=== PATIENT | female | born 1990 | race Two or more races ===

== ENCOUNTER 2017-05-17 08:33 | Emergency (ER) | payer OTHER ==
[~2017-05-17] VITALS: Ht 144.8 cm; Wt 45.4 kg
--- NOTE | 2017-05-17 09:05 | PHYS DOC ---
General Chief Complaint: VAGINAL BLEEDING Stated Complaint: VAGINAL BLEEDING Time Seen by MD: 08:50 Source: patient Exam Limitations: no limitations Problems: History of Present Illness Initial Comments Patient is a 27-year-old 9 wks gestation female c/o 3 days vaginal bleeding and lower abdominal pain. 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 She says she started bleeding on Tuesday but was having no discomfort. Yesterday she developed some lower abdominal discomfort described as cramping which has persisted until this morning. Additionally today she is having low back discomfort and spasms which, and go. She says the bleeding was mild initially but has progressively worsened. Initially she had dark brown discharge however today she is having bright red blood with some clots. She tried to contact her booth manager but was unable to get a hold of them so she came for evaluation. ED vitals: 98.6, 75, 16, 119/68, 98% room air Patient is 1 para 0 she is taking vitamins she is a nonsmoker. Timing/Duration: getting worse (3 days ago) Severity: moderate Modifying Factors: improves with other Associated Symptoms: other Allergies: Coded Allergies: No Known Drug Allergies (Unverified , 05/17/17) Past Medical History Medical History: no pertinent history Surgical History: no surgical history Social History Smoker: non-smoker Alcohol: none Drugs: none Review of Systems Constitutional: denies chills, denies fever Respiratory: denies cough, denies shortness of breath Cardiovascular: denies chest pain, denies palpitations Gastrointestinal: see HPI, denies diarrhea, denies nausea, denies vomiting Genitourinary: see HPI Musculoskeletal: see HPI, denies joint swelling, denies neck pain Psychiatric/Neurological: denies headache, denies numbness, denies paresthesia Physical Exam General Appearance: WD/WN, no apparent distress Eyes: bilateral eye normal inspection, bilateral eye PERRL, bilateral eye EOMI Ear, Nose, Throat: hearing grossly normal, normal ENT inspection Neck: full range of motion Respiratory: normal breath sounds, no respiratory distress Cardiovascular: regular rate, rhythm, no edema Gastrointestinal: soft (suprapubic tenderness, no rebound or guarding. 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 PHYSICIAN: PEDRO BAIRD DO REASON: 9 wks gest bleed x 3 days r/o ectopic vs PROCEDURE: OB <14 WKS W/TV Obstetrical pelvic ultrasound 05/17/2017 at 1025 hours Indication: Bleeding and cramping with passage of large clots. Beta hCG 7970. Comparison: None available Technique: Sonographic evaluation of the pelvic structures was performed utilizing transabdominal imaging. Grayscale and color Doppler was utilized. Findings: The uterus measures 9.8 x 5.1 x 4.4 cm. Endometrium measures 13 mm in maximal dimension. No gestational sac is identified. Right ovary measures 2.8 x 2.5 x 1.6 cm and appears normal. Left ovary measures 3.2 x 3.1 x 1.7 cm and contains a cyst measuring 1.6 x 1.4 x 0.8 cm. Spectral waveform analysis was performed demonstrating perfusion to the ovaries bilaterally the time of imaging. Small amount of free fluid is noted within the cul-de-sac. Impression: 1. An intrauterine gestational sac is not identified. Given the beta hCG values, findings may represent early versus ectopic versus aborted . Recommend serial beta-hCG and follow-up ultrasound. 2. There is a 1.6 x 1.4 x 0.8 cm cystic lesion in the left ovary which is felt to represent either a follicle or corpus luteal cyst. Attention on follow-up exams is recommended. DICTATED AND SIGNED BY: ASTRID GARDINER MD DATE: 05/17/17 1112 CC: HOWIE MCKEON DO; PEDRO BAIRD DO ~ 1143: CBC, CMP unremarkable. HCG 7970. Patient is in more discomfort at this point upon recheck I find her standing and bending forward with her hands on the exam table. She reports that the low back and lower abdomen discomfort is more severe but no other new symptoms. I called Dr. Simons office to discuss the findings and specifically possibility of ectopic . He isn't a delivery and staff reports he will call back momentarily. 1230: I discussed the patient with Dr. Simons. Patient is likely miscarrying however due to abnormal ultrasound and her evolving discomfort he recommends observation admission. Our facility has no obstetrics so he recommends EMS transfer to the emergency department at [facility] further evaluation and observation admission. I discussed the patient with Dr. Cruz, emergency department physician at who accepts the patient for EMS transfer to his facility. ED course: 27-year-old female 9 months gestation 1 presents with stable vital signs and 3 days vaginal bleeding and worsening abdominal and low back discomfort. ECT and CMP are unremarkable, hCG is 7970. Ultrasound reveals possible ectopic . Patient received fentanyl and Zofran as well as 1 L normal saline IV bolus in the emergency department and was transferred to [facility] ED for further evaluation. Departure Time of Disposition: 12:51 Disposition: 02 XFER SHT-TRM HOSP Diagnosis: First trimester bleeding r/o ectopic Condition: STABLE Additional Instructions: EMS transfer to [facility] ED Dr Cruz is accepting. PEDRO BAIRD DO May 17, 2017 09:05
[2017-05-17 09:29] LABS: BASO # 0.1 x10^3/uL (0.0-0.2); BASO % 1 % (0-3); EOS # 0.1 x10^3/uL (0.0-0.7); EOS % 1 % (0-3); HEMATOCRIT 38.2 % (36.0-47.0); HEMOGLOBIN 12.9 g/dL (12.0-15.5); LYMPH # 1.6 x10^3/uL (1.0-4.8); LYMPH % 15 % (24-48); MEAN CORPUSCULAR HEMOGLOBIN 30 pg (25-35); MEAN CORPUSCULAR HGB CONC 34 g/dL (31-37); MEAN CORPUSCULAR VOLUME 89 fL (79-100); MONO # 0.7 x10^3/uL (0.0-1.1); MONO % 7 % (0-9); NEUT # 7.8 x10^3uL (1.8-7.7); NEUT % 77 % (31-73); PLATELET COUNT 223 x10^3/uL (140-400); RED BLOOD COUNT 4.29 x10^6/uL (3.50-5.40); RED CELL DISTRIBUTION WIDTH 12.5 % (11.5-14.5); WHITE BLOOD COUNT 10.2 x10^3/uL (4.0-11.0)
[2017-05-17 09:39] LABS: ALBUMIN 4.2 g/dL (3.4-5.0); CALCIUM 8.8 mg/dL (8.5-10.1); CREATININE 0.7 mg/dL (0.6-1.0); DIRECT BILIRUBIN 0.1 mg/dL (0.0-0.2); TOTAL BILIRUBIN 0.4 mg/dL (0.2-1.0); TOTAL PROTEIN 7.2 g/dL (6.4-8.2)
--- NOTE | 2017-05-17 11:23 | RAD ---
Obstetrical pelvic ultrasound 05/17/2017 at 1025 hours Indication: Bleeding and cramping with passage of large clots. Beta hCG 7970. Comparison: None available Technique: Sonographic evaluation of the pelvic structures was performed utilizing transabdominal imaging. Grayscale and color Doppler was utilized. Findings: The uterus measures 9.8 x 5.1 x 4.4 cm. Endometrium measures 13 mm in maximal dimension. No gestational sac is identified. Right ovary measures 2.8 x 2.5 x 1.6 cm and appears normal. Left ovary measures 3.2 x 3.1 x 1.7 cm and contains a cyst measuring 1.6 x 1.4 x 0.8 cm. Spectral waveform analysis was performed demonstrating perfusion to the ovaries bilaterally the time of imaging. Small amount of free fluid is noted within the cul-de-sac. Impression: 1. An intrauterine gestational sac is not identified. Given the beta hCG values, findings may represent early versus ectopic versus aborted . Recommend serial beta-hCG and follow-up ultrasound. 2. There is a 1.6 x 1.4 x 0.8 cm cystic lesion in the left ovary which is felt to represent either a follicle or corpus luteal cyst. Attention on follow-up exams is recommended.
[2017-05-17] MEDS ORDERED: IV NORMAL SALINE 1,000ML 1,000 ML IV SCH (12:46)
[2017-05-17] MEDS ORDERED: fentaNYL PF 100 MCG/2 ML VIAL IV PRN (13:00)
[2017-05-17] MEDS ORDERED: ONDANSETRON PF 4 MG/2 ML VIAL. IV ONE (13:00)
[2017-05-17 13:15] VITALS: BP 115/72
[2017-05-17] MEDS ORDERED: fentaNYL PF 100 MCG/2 ML VIAL IM ONE (13:15)
== END 2017-05-17 13:42 | disposition short-term general hospital (02) ==
LOC: ER 08:33
DX: O20.9 Hemorrhage in early pregnancy, unspecified (principal); O00.90 Unspecified ectopic pregnancy without intrauterine pregnancy; R10.30 Lower abdominal pain, unspecified; M54.5 Low back pain; Z3A.09 9 weeks gestation of pregnancy
CPT/HCPCS: 36415; 76801; 76817; 80048; 80076; 84702; 85025; 96374; 96375; 99285; J2405; J3010; J7030

== ENCOUNTER 2017-10-22 08:56 | Emergency (ER) | payer OTHER ==
[2017-10-22 09:20] VITALS: BP 140/56
[2017-10-22] MEDS ORDERED: AZIT250T PO (10:44)
[2017-10-22] MEDS ORDERED: ALBU8.5H8 INH (10:44)
--- NOTE | 2017-10-22 10:51 | PHYS DOC ---
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 Patient states that she's having some wheezing and become short of breath more easily than normal. She denies fever chills sweats or body aches no headache or other symptoms consistent with influenza. No nausea vomiting or diarrhea no immunocompromise status and ED vital signs are stable. Timing/Duration: other Severity: moderate Modifying Factors: worse with movement, improves with rest Associated Symptoms: cough, shortness of breath Allergies: Coded Allergies: No Known Drug Allergies (Unverified , 05/17/17) Past Medical History Medical History: no pertinent history Surgical History: no surgical history Social History Smoker: non-smoker Alcohol: none Drugs: none Review of Systems Constitutional: denies chills, denies diaphoresis, denies fever, denies malaise Respiratory: see HPI Cardiovascular: denies chest pain, denies palpitations, denies syncope Gastrointestinal: denies diarrhea, denies nausea, denies vomiting Musculoskeletal: denies back pain, denies joint swelling, denies neck pain Psychiatric/Neurological: denies headache, denies numbness, denies paresthesia Hematologic/Lymphatic: denies blood clots, denies easy bleeding, denies easy bruising Physical Exam General Appearance: WD/WN, no apparent distress Ear, Nose, Throat: hearing grossly normal, normal ENT inspection, normal pharynx Neck: non-tender, supple Respiratory: chest non-tender, wheezing, other (course breath sounds bilaterally good air movement) Cardiovascular: normal peripheral pulses, regular rate, rhythm Back: no CVA tenderness, no vertebral tenderness Extremities: normal range of motion, non-tender, no pedal edema, no calf tenderness 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 Aggressive hydration with Gatorade or water. [id number] cetirizine for morning symptoms, Benadryl for evening symptoms. Prescription: Zithromax, albuterol MDI Follow-up at [place] in 5-7 days for recheck. Return to ED with new or changing symptoms. PEDRO BAIRD DO Oct 22, 2017 10:51
== END 2017-10-22 10:55 | disposition home or self-care (01) ==
LOC: ER 08:56
DX: J40 Bronchitis, not specified as acute or chronic (principal); J98.01 Acute bronchospasm
CPT/HCPCS: 81025; 99283

== ENCOUNTER 2018-04-24 10:29 | Emergency (ER) | payer OTHER ==
[~2018-04-24] VITALS: Ht 144.8 cm; Wt 53.1 kg
[~2018-04-24 10:29] MED LIST: ALBU8.5H8 INH; AZIT250T PO
[2018-04-24 11:16] VITALS: BP 113/64
[2018-04-24] MEDS ORDERED: HYDR30CR61 TP (11:20)
--- NOTE | 2018-04-24 11:21 | PHYS DOC ---
Past History Past Medical History: No Pertinent History Past Surgical History: No Surgical History Alcohol Use: None Drug Use: None Adult General Chief Complaint Chief Complaint: rectal pain HPI HPI 28-year-old female patient at 25 weeks of gestation complaining of pain in anal area for the last 2 days as a constant sharp pain that getting worse during bowel movement. Patient states she had constipation about 2 weeks ago that resolved and has had bowel movements daily but with each bowel movement she has increasing of pain especially in left side of anal area. Patient denies rectal bleeding, anal mass, abdominal pain, nausea and vomiting, vaginal bleeding, abdominal contraction. Patient states she was not able to get appointment with her WEB CONTENT SPECIALIST. Review of Systems Review of Systems Constitutional: Denies fever or chills [] Eyes: Denies change in visual acuity, redness, or eye pain [] HENT: Denies nasal congestion or sore throat [] Respiratory: Denies cough or shortness of breath [] Cardiovascular: No additional information not addressed in HPI [] GI: Denies abdominal pain, nausea, vomiting, bloody stools or diarrhea [] : Denies dysuria or hematuria [] Musculoskeletal: Denies back pain or joint pain [] Integument: Denies rash or skin lesions [] Neurologic: Denies headache, focal weakness or sensory changes [] Endocrine: Denies polyuria or polydipsia [] All other systems were reviewed and found to be within normal limits, except as documented in this note. Allergies Allergies Allergies Coded Allergies Type Severity Reaction Last Updated Verified No Known Drug Allergies 05/17/17 No Physical Exam Physical Exam Constitutional: Well developed, well nourished, mild distress, non-toxic appearance. [] HENT: Normocephalic, atraumatic, oropharynx moist. Eyes: PERRLA, EOMI, conjunctiva normal, no discharge. [] Neck: Normal range of motion, no tenderness, supple, no stridor. [] Cardiovascular:Heart rate regular rhythm, no murmur [] Lungs & Thorax: Bilateral breath sounds clear to auscultation [] Abdomen: Gravid abdomen, no tenderness, heart rate 144, bowel sounds normal, soft, no tenderness, no masses, no pulsatile masses. 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 [] Back: No tenderness, no CVA tenderness. [] Extremities: No tenderness, no cyanosis, no clubbing, ROM intact, no edema. [] Neurologic: Alert and oriented X 3, normal motor function, normal sensory function, no focal deficits noted. [] Psychologic: Affect normal, judgement normal, mood normal. [] Current Patient Data Vital Signs Vital Signs Date Time Temp Pulse Resp B/P (MAP) Pulse Ox O2 Delivery O2 Flow Rate FiO2 04/24/18 10:34 98.3 96 18 98 Room Air EKG EKG [] Radiology/Procedures Radiology/Procedures [] Course & Med Decision Making Course & Med Decision Making Evaluation of patient in ER showed 28-year-old female patient at 25 weeks of gestation with complaining of anal pain for 3 days. Patient had hemorrhoidal tag and mild tenderness of the perianal area without anal fissure. Patient instructed to avoid of constipation and uses sitz bath's. Prescription for Anusol was given and patient instructed to follow up with her WEB CONTENT SPECIALIST and primary care physician. Dragon Disclaimer Dragon Disclaimer This electronic medical record was generated, in whole or in part, using a voice recognition dictation system. Departure Departure: Impression: Primary Impression: External hemorrhoid Additional Impression: Currently Disposition: 01 HOME, SELF-CARE (at 1118) Condition: STABLE Referrals: HOWIE MCKEON DO (PCP) Patient Instructions: Constipation, Adult, Hemorrhoids, Sitz Bath Additional Instructions: Drink plenty of liquids Follow-up with your WEB CONTENT SPECIALIST in 3-5 days Return to ER if not getting better Uses sitz bath's several times a day Scripts Hydrocortisone (ANUSOL-HC) 30 Gm Cream..g. 1 ENRIQUE TP QID, #30 GM 1 Refill Prov: VICTOR MANUEL MAK MD 04/24/18 Problem Qualifiers VICTOR MANUEL MAK MD Apr 24, 2018 11:21
== END 2018-04-24 11:25 | disposition home or self-care (01) ==
LOC: ER 10:29
DX: O22.43 Hemorrhoids in pregnancy, third trimester (principal); Z3A.25 25 weeks gestation of pregnancy
CPT/HCPCS: 99283